=== PATIENT | female | born 1965 | race Caucasian/White ===

== ENCOUNTER 2018-03-08 19:44 | Emergency (ER) | payer MEDICAID, OTHER, SELFPAY ==
[~2018-03-08] VITALS: Ht 157.5 cm; Wt 61.1 kg
[2018-03-08 19:49] VITALS: BP 121/81
[2018-03-08] MEDS ORDERED: KETOROLAC 30 MG/1 ML ONE (20:39)
[2018-03-08] MEDS ORDERED: KETOROLAC 30 MG/1 ML IM ONE (21:00)
== END 2018-03-08 21:04 | disposition home or self-care (01) ==
LOC: ED 20:40
DX: S46.011A Strain of muscle(s) and tendon(s) of the rotator cuff of right shoulder, initial encounter (principal); X50.0XXA Overexertion from strenuous movement or load, initial encounter; X50.9XXA Other and unspecified overexertion or strenuous movements or postures, initial encounter; Y93.89 Activity, other specified; Y92.69 Other specified industrial and construction area as the place of occurrence of the external cause; Y99.0 Civilian activity done for income or pay
CPT/HCPCS: 73030; 99283; J1885